=== PATIENT | female | born 1975 | race Two or more races ===

== ENCOUNTER 2016-09-01 03:31 | Emergency (ER) | payer OTHER | END 2016-09-01 03:43 | disposition left against medical advice (07) | LOC: ER 03:35 | DX: Z53.21 Procedure and treatment not carried out due to patient leaving prior to being seen by health care provider (principal) ==

== ENCOUNTER 2017-01-09 12:11 | Emergency (ER) | payer OTHER ==
[~2017-01-09] VITALS: Ht 170.2 cm; Wt 81.6 kg
--- NOTE | 2017-01-09 12:26 | NUR ---
Present self to ed due to both feet redness and swelling, skin is intact and warm to touch. Patient also reported itchiness all over her body. VSs. Awaiting for md montgomery
--- NOTE | 2017-01-09 12:27 | NUR ---
Dr. Zaman at bedside for eval
[2017-01-09 12:40] VITALS: BP 148/98
== END 2017-01-09 12:41 | disposition home or self-care (01) ==
LOC: ER 12:13
DX: B35.3 Tinea pedis (principal); Z88.8 Allergy status to other drugs, medicaments and biological substances
CPT/HCPCS: A4606; Z7610